=== PATIENT | female | born 1950 | race African-American/Black ===

== ENCOUNTER 2018-03-26 13:44 | Outpatient (CLI) | payer MEDICARE ==
--- NOTE | 2018-03-26 15:21 | XRay Report ---
LEFT KNEE, 2 views: History: Left knee pain. Moderate osteoarthritic changes are identified in the medial compartment. Mild osteoarthritic changes are identified in the lateral compartment. No evidence for fracture, osteochondral defect or bone lesion. The soft tissues are unremarkable. IMPRESSION: Osteoarthritis.
--- NOTE | 2018-03-31 16:14 | Mammography Report ---
BONE DEXA:03/26/18 CLINICAL: Postmenopausal. No comparison. TECHNIQUE: Two site bone DEXA performed on an Hologic scanner. FINDINGS: The average BMD of the lumbar spine L1-L4 is 0.949g/cm squared with a T-score of -0.9 and a Z-score of +1.2. The average BMD of the left hip is 0.843g/cm squared with a T-score of -0.8 and a Z-score of +0.7. The left femoral neck BMD is 0.649g/cm squared with a T score of -1.8 and a Z score of 0. IMPRESSION: 1. WHO classification: Normal with average fracture risk based on lumbar spine measurements. 2. WHO classification: Osteopenia with average fracture risk based on left femoral neck measurements. 3. The FRAX 10 year fracture probability for a major osteoporotic fracture is 10%. 4. The FRAX 10 year fracture probability for hip fracture is 1.7%. Note: FRAX version 3.01. Fracture probability calculated for an untreated patient. Fracture probability may be lower if the patient has received treatment. RECOMMENDATION: Clinical correlation and routine screening. DEFINITIONS: BMD = Bone Mineral Density T-score = BMD related to mean peak bone mass of young adult (mean expressed in Standard Deviation) Z-score = Age matched BMD expressed in SD World Health Organization (WHO) Diagnostic Criteria Normal T-score > -1 SD Osteopenia T-score between -1 and -2.4 SD Osteoporosis T-score -2.5 SD or below NOTE: BMD is not the only risk factor for fracture; also consider factors such as the patient's age, risk of falling, previous osteoporotic fracture, family history of osteoporotic fractures, current smoker, and low body weight. All treatment decisions require clinical judgment and consideration of individual patient factors, including patient preferences, comorbidities, previous drug use and risk factors not captured in the FRAX model (e.g. frailty, falls, vitamin D deficiency, increased bone turnover, interval significant decline in BMD). Fracture probability is calculated for an untreated patient. Fracture probability may be lower if the patient has received treatment. Z-scores are not calculated if >80 years of age.
== END 2018-03-26 13:45 | disposition home or self-care (01) ==
LOC: MAMMO 13:44
DX: Z13.820 Encounter for screening for osteoporosis (principal); M17.12 Unilateral primary osteoarthritis, left knee; M85.88 Other specified disorders of bone density and structure, other site; F17.210 Nicotine dependence, cigarettes, uncomplicated; Z78.0 Asymptomatic menopausal state
CPT/HCPCS: 77080

== ENCOUNTER 2018-11-11 10:40 | Outpatient (CLI) | payer MEDICARE ==
--- NOTE | 2018-11-11 11:17 | XRay Report ---
CHEST 2 VIEWS INDICATION: Shortness of breath. COMPARISON: None similar. FINDINGS: PA and lateral chest radiographs demonstrate normal cardiomediastinal silhouette. Aortic knob calcifications. Right hemidiaphragm approximately 2.5 cm higher than the left. Clear lungs without pleural effusions or CHF. Demineralized bones with moderate multilevel thoracic spondylosis. CONCLUSION: No acute chest process, as described. Thank you for the opportunity to participate in this patient's care.
== END 2018-11-11 10:41 | disposition home or self-care (01) ==
LOC: XRAY 10:40
PROVIDERS: ATTEND Internal Medicine
DX: R06.02 Shortness of breath (principal); M47.814 Spondylosis without myelopathy or radiculopathy, thoracic region
CPT/HCPCS: 71046

== ENCOUNTER 2019-01-29 10:39 | Outpatient (CLI) | payer MEDICARE ==
--- NOTE | 2019-02-01 09:36 | Mammography Report ---
BILATERAL DIGITAL SCREENING MAMMOGRAM WITH CAD INDICATION: Screening. COMPARISONS: None available. FINDINGS: Craniocaudal and mediolateral oblique views of both breasts were obtained using 2-D digital acquisition. In addition to standard review, the examination was analyzed for possible abnormalities using a computer-assisted detection device (iCAD). There are scattered areas of fibroglandular density. Bilateral asymmetries require additional imaging. No architectural distortion or suspicious calcifica tions. IMPRESSION: Bilateral asymmetries requiring additional imaging. Recommend recall for bilateral spot compression v iews and bilateral breast ultrasound if needed. BI-RADS CATEGORY 0: INCOMPLETE - NEED ADDITIONAL IMAGING EVALUATION AND/OR PRIOR MAMMOGRAMS FOR COMP ARISON Information is entered into a reminder system for a target due date for the next mammogram. The resul ts and recommendations were sent to the patient by mail. Signer Name: Juan Carlos Headley MD Signed: 02/01/2019 9:32 AM Workstation Name: [id number]
== END 2019-01-29 10:40 | disposition home or self-care (01) ==
LOC: MAMMO 10:39
PROVIDERS: ATTEND Internal Medicine
DX: Z12.31 Encounter for screening mammogram for malignant neoplasm of breast (principal)
CPT/HCPCS: 77067

== ENCOUNTER 2019-02-26 09:02 | Outpatient (CLI) | payer MEDICARE ==
--- NOTE | 2019-02-26 10:56 | Ultrasound Report ---
BILATERAL DIGITAL DIAGNOSTIC MAMMOGRAM -- 02/26/2019 LEFT BREAST ULTRASOUND INDICATION: Bilateral asymmetric densities seen on screening mammography. TECHNIQUE: Digital bilateral mammographic imaging was performed. Spot compression views were obtaine d. COMPARISON: Screening mammogram dated 01/29/2019 FINDINGS: Breast Density: There are scattered areas of fibroglandular density. Additional views of the right breast show the density seen on screening mammography represents overla pping fibroglandular tissue. No residual focal asymmetric density is noted on spot compression views. Additional views of the left breast show the focal asymmetric density in the upper outer quadrant pos terior depth 2:00 position to persist on additional imaging . It is well-circumscribed and has densit y similar to surrounding fibroglandular tissue. There is a rim of fat surrounding this density. . Tar geted ultrasound was performed. Ultrasound Findings: Targeted sonographic evaluation was performed on the area of interest. In the le ft breast, a 4.2 x 1.1 x 2.9 cm mostly hyperechoic mass correlates with the density seen mammographic ally. Otherwise, normal fibroglandular tissue is seen. IMPRESSION: BI-RADS Category 3: Probably Benign. Mammographic and ultrasonographic characteristics are most co nsistent with a benign hamartoma. Since no prior mammograms are available for comparison, six-month f ollow-up left breast mammogram and ultrasound is recommended to assure stability of this finding. A "normal" or negative report should not discourage follow up or biopsy of a clinically significant f inding. A written summary of these findings will be mailed to the patient. The patient will be entered into a mammography reporting system which will generate a reminder letter for the patient's next appointmen t at the appropriate interval. According to the [employer], yearly mammograms are recommended starting at age 40 and continuing as long as a woman is in good health. Breast MRI is recommended for women with an beatriz roximately 20-25% or greater lifetime risk of breast cancer, including women with a strong family his tory of breast or ovarian cancer and women who have been treated for Hodgkin's disease. Signer Name: Samina Amador MD Signed: 02/26/2019 10:52 AM Workstation Name: [id number]
== END 2019-02-26 09:03 | disposition home or self-care (01) ==
LOC: MAMMO 09:02
PROVIDERS: ATTEND Internal Medicine
DX: R92.8 Other abnormal and inconclusive findings on diagnostic imaging of breast (principal)
CPT/HCPCS: 77066

== ENCOUNTER 2021-04-25 11:37 | Outpatient (CLI) | payer MEDICARE ==
--- NOTE | 2021-04-26 08:08 | Mammography Report ---
DIGITAL SCREENING MAMMOGRAM WITH CAD, 04/25/2021 CLINICAL INFORMATION / INDICATION: Routine screening mammography. TECHNIQUE: Digital bilateral 2D mammography was obtained in the craniocaudal and mediolateral obliqu e projections. This examination was interpreted with the benefit of Computer-Aided Detection analysis . COMPARISON: 01/29/2019, 02/09/2020 FINDINGS: Breast Density: There are scattered areas of fibroglandular density. No dominant mass, suspicious calcifications, or architectural distortion in either breast. Focal masslike asymmetry in the upper outer left breast is stable. Overall, no interval change. IMPRESSION: No mammographic evidence of malignancy. Follow up recommendation: Routine yearly BI-RADS Category 2: Benign. A "normal" or negative report should not discourage follow up or biopsy of a clinically significant f inding. A written summary of these findings will be mailed to the patient. The patient will be entered into a mammography reporting system which will generate a reminder letter for the patient's next appointmen t at the appropriate interval. The [employer] recommends yearly mammograms starting at age 40 and continuing as l jes as a woman is in good health. Breast MRI is recommended for women with an approximate 20-25% or greater lifetime risk of breast cancer, including women with a strong family history of breast or ova june cancer or who have been treated for Hodgkin's disease. Signer Name: Diane Koo MD Signed: 04/26/2021 8:04 AM Workstation Name: [id number]
== END 2021-04-25 11:38 | disposition home or self-care (01) ==
LOC: MAMMO 11:37
PROVIDERS: ATTEND Internal Medicine
DX: Z12.31 Encounter for screening mammogram for malignant neoplasm of breast (principal); N64.89 Other specified disorders of breast
CPT/HCPCS: 77067

== ENCOUNTER 2022-01-10 10:34 | Outpatient (CLI) | payer MEDICARE ==
--- NOTE | 2022-01-10 13:51 | XRay Report ---
CHEST 2 VIEWS INDICATION / CLINICAL INFORMATION: R07.89. Shortness of breath for 2 months. COMPARISON: 11/11/18 FINDINGS: SUPPORT DEVICES: None. HEART / MEDIASTINUM: No significant abnormality. LUNGS / PLEURA: No significant pulmonary or pleural abnormality. No pneumothorax. ADDITIONAL FINDINGS: Left shoulder degenerative arthrosis. IMPRESSION: 1. No acute findings. Signer Name: Haroldo Butler MD Signed: 01/10/2022 1:46 PM Workstation Name: [id number]
== END 2022-01-10 10:35 | disposition home or self-care (01) ==
LOC: XRAY 10:34
PROVIDERS: ATTEND Internal Medicine
DX: R07.89 Other chest pain (principal); M19.012 Primary osteoarthritis, left shoulder
CPT/HCPCS: 71046

== ENCOUNTER 2022-01-21 13:22 | Outpatient (CLI) | payer MEDICARE ==
--- NOTE | 2022-01-21 15:58 | Mammography Report ---
DEXA BONE DENSITY SCAN INDICATION / CLINICAL INFORMATION: Z13.820. 71 years Female COMPARISON: 03/16/2018 LUMBAR SPINE, L1-L4: - Bone mineral density (BMD) = 1.0 g/cm2. - T-score = -0.4 - Change (%) since most recent prior (if available): +5.3 LEFT HIP, NECK : - Bone mineral density (BMD) = 0.621 g/cm2. - T-score = -2.1 - Change (%) since most recent prior (if available): February 20 0.3 IMPRESSION: 1. WHO Classification: Osteopenia. Fracture Risk: Increased. 2. 10-Year Fracture Risk (FRAX) = Major Osteoporotic 13% / Hip: 3.1% FRAX generally not reported for patients with normal or osteoporotic BMD, in uuv-bafvgyr-[id number] sergey ents younger than age 50, or in patients undergoing pharmacotherapy BMD Reporting Guidelines (ISCD, 2015) BMD Reporting in Postmenopausal Women and in Men Age 50 and Older - T-scores are preferred. - The WHO densitometric classification is applicable. BMD Reporting in Females Prior to Menopause and in Males Younger Than Age 50 - Z-scores, not T-scores, are preferred. This is particularly important in children. - A Z-score of -2.0 or lower is defined as below the expected range for age, and a Z-score above -2.0 is within the expected range for age. - Osteoporosis cannot be diagnosed in men under age 50 on the basis of BMD alone. - The WHO diagnostic criteria may be applied to women in the menopausal transition. http://www.iscd.org/official-positions/7067-vzmm-zspudoii-positions-adult/ Signer Name: Yaw Dickens MD Signed: 01/21/2022 3:53 PM Workstation Name: [email or web address]
== END 2022-01-21 13:23 | disposition home or self-care (01) ==
LOC: MAMMO 13:22
PROVIDERS: ATTEND Internal Medicine
DX: Z12.31 Encounter for screening mammogram for malignant neoplasm of breast (principal); M85.88 Other specified disorders of bone density and structure, other site
CPT/HCPCS: 77080